=== PATIENT | male | born 1985 | race Caucasian/White ===

== ENCOUNTER 2016-12-20 19:52 | Emergency (ER) | payer MEDICARE ==
[2016-12-21 02:01] LABS: HEMOGLOBIN 14.3 gm/dl (14.0-17.5); RED BLOOD COUNT 5.13 M/UL (4.20-5.50); WHITE BLOOD COUNT 6.1 K/UL (4.5-11.0)
[2016-12-21 02:25] LABS: BUN/CREATININE RATIO 17 (0-10)
== END 2016-12-21 09:35 | disposition home or self-care (01) ==
LOC: ER1 19:52
PROVIDERS: Emergency Medicine
DX: E11.65 Type 2 diabetes mellitus with hyperglycemia (principal); N39.0 Urinary tract infection, site not specified; Z88.0 Allergy status to penicillin
CPT/HCPCS: 36415; 71020; 80053; 81001; 82009; 82803; 82962; 83690; 85025; 87077; 87086; 93005; 96361; 96365; 96372; 99285; J1815; J7030

== ENCOUNTER → 2021-01-07 | Outpatient (CLI) | payer OTHER | LOC: HEART 5 12:16 | DX: Z87.09 Personal history of other diseases of the respiratory system (principal) | CPT/HCPCS: 71046; 94060 ==